=== PATIENT | female | born 1995 ===

== ENCOUNTER 2022-08-07 18:26 | Emergency (ER) | payer SELFPAY ==
[2022-08-07] MEDS ORDERED: MECLIZINE 25 MG (ANTIVERT) TAB ONE (19:04)
[2022-08-07] MEDS ORDERED: MECL-149 PO (20:00)
--- NOTE | 2022-08-07 20:00 | ED General ---
General Chief Complaint: Dizziness/Syncope Stated Complaint: DIZZINESS Source of Information: Patient Exam Limitations: No Limitations History of Present Illness Date Seen by Provider: Aug 07, 2022 Time Seen by Provider: 19:57 Initial Comments Patient is a 27-year-old female who presents the ED for dizziness. Dizziness started 3 days ago. Patient states the dizziness was acute onset. Feels like the room is spinning. She states is worse when she gets up and walks or moves her head. Denies of any visual loss, headache, unilateral muscle weakness or sensory changes, head injury, fever, vomiting or diarrhea. She states she feels nauseous and has to hold onto something with her walking. Patient is concerned for possible as she states she felt very similar when she was . Last menstrual cycle was July 19. Denies of any recent travels or surgeries. Denies taking medication with her symptoms. Patient denies ear ringing, hearing loss. No history of stroke. History of gestational diabetes. Allergies and Home Medications Patient Home Medication List Home Medication List Reviewed: Yes Meclizine HCl (Meclizine HCl) 25 Mg Tablet, 25 MG PO Q6H PRN for DIZZINESS Prescribed by: MAGGY REVELES on 08/07/221999 Review of Systems Review of Systems Constitutional: No chills, No diaphoresis, No malaise, No weakness EENTM: No ear pain, No blurred vision, No double vision Respiratory: No cough, No dyspnea on exertion Cardiovascular: No chest pain, No edema Gastrointestinal: No abdominal pain, No diarrhea; nausea; No vomiting Genitourinary: No decreased output, No discharge Musculoskeletal: No back pain Skin: No change in color, No change in hair/nails All Other Systems Reviewed Negative Unless Noted: Yes Past Cujvzkr-Xekfhe-Pwcaui Hx Patient Social History Tobacco Use?: No Substance use?: No Alcohol Use?: No Physical Exam Vital Signs Vital Signs - First Documented 08/07/22 18:34 Temp 36.4 Pulse 91 Resp 18 B/P (MAP) 119/79 (92) Pulse Ox 98 O2 Delivery Room Air Capillary Refill : Height, Weight, BMI Height: '" Weight: lbs. oz. kg; BMI Method: General Appearance: No Apparent Distress, WD/WN Eyes: Bilateral Eye Normal Inspection, Bilateral Eye PERRL, Bilateral Eye EOMI HEENT: PERRL/EOMI, TMs Normal, Normal ENT Inspection, Pharynx Normal Neck: Full Range of Motion, Supple Respiratory: Chest Non Tender, Lungs Clear, Normal Breath Sounds, No Accessory Muscle Use Cardiovascular: Regular Rate, Rhythm, No Edema, No Gallop, No JVD Gastrointestinal: Normal Bowel Sounds, No Organomegaly, No Pulsatile Mass, Non Tender Back: Normal Inspection, No CVA Tenderness Extremity: Normal Capillary Refill, Normal Inspection, Normal Range of Motion, Non Tender, No Calf Tenderness Neurologic/Psychiatric: Alert, Oriented x3, No Motor/Sensory Deficits, Normal Mood/Affect, supervisor facepiece line II-XII Norm as Tested Skin: Normal Color, Warm/Dry Lymphatic: No Adenopathy Progress/Results/Core Measures Suspected Sepsis SIRS Temperature: Pulse: Respiratory Rate: Laboratory Tests 08/07/22 19:00: White Blood Count 9.7 Blood Pressure / Mean: Laboratory Tests 08/07/22 19:00: Creatinine 0.63, Platelet Count 409H, Total Bilirubin 0.4 Results/Orders Lab Results Laboratory Tests Test 08/07/22 19:00 Range/Units White Blood Count 9.7 4.3-11.0 10^3/uL Red Blood Count 5.60 H 3.80-5.11 10^6/uL Hemoglobin 9.8 L 11.5-16.0 g/dL Hematocrit 34 L 35-52 % Mean Corpuscular Volume 61 L 80-99 fL Mean Corpuscular Hemoglobin 18 L 25-34 pg Mean Corpuscular Hemoglobin Concent 29 L 32-36 g/dL Red Cell Distribution Width 20.2 H 10.0-14.5 % Platelet Count 409 H 130-400 10^3/uL Mean Platelet Volume 9.8 9.0-12.2 fL Immature Granulocyte % (Auto) 0 % Neutrophils (%) (Auto) 65 42-75 % Lymphocytes (%) (Auto) 26 12-44 % Monocytes (%) (Auto) 7 0-12 % Eosinophils (%) (Auto) 1 0-10 % Basophils (%) (Auto) 0 0-10 % Neutrophils # (Auto) 6.3 1.8-7.8 10^3/uL Lymphocytes # (Auto) 2.5 1.0-4.0 10^3/uL Monocytes # (Auto) 0.7 0.0-1.0 10^3/uL Eosinophils # (Auto) 0.1 0.0-0.3 10^3/uL Basophils # (Auto) 0.0 0.0-0.1 10^3/uL Immature Granulocyte # (Auto) 0.0 0.0-0.1 10^3/uL Urine Color YELLOW Urine Clarity CLOUDY Urine pH 6.5 5-9 Urine Specific Eldridge 1.015 L 1.016-1.022 Urine Protein NEGATIVE NEGATIVE Urine Glucose (UA) NEGATIVE NEGATIVE Urine Ketones NEGATIVE NEGATIVE Urine Nitrite NEGATIVE NEGATIVE Urine Bilirubin NEGATIVE NEGATIVE Urine Urobilinogen 0.2 < = 1.0 MG/DL Urine Leukocyte Esterase TRACE H NEGATIVE Urine RBC (Auto) NEGATIVE NEGATIVE Urine RBC NONE /HPF Urine WBC 2-5 /HPF Urine Squamous Epithelial Cells 2-5 /HPF Urine Crystals NONE /LPF Urine Bacteria FEW H /HPF Urine Casts NONE /LPF Urine Mucus NEGATIVE /LPF Urine Culture Indicated YES Urine Test NEGATIVE NEGATIVE Sodium Level 139 135-145 MMOL/L Potassium Level 3.3 L 3.6-5.0 MMOL/L Chloride Level 104 98-107 MMOL/L Carbon Dioxide Level 25 21-32 MMOL/L Anion Gap 10 5-14 MMOL/L Blood Urea Nitrogen 6 L 7-18 MG/DL Creatinine 0.63 0.60-1.30 MG/DL Estimat Glomerular Filtration Rate 123 BUN/Creatinine Ratio 10 Glucose Level 105 70-105 MG/DL Calcium Level 8.9 8.5-10.1 MG/DL Corrected Calcium 8.9 8.5-10.1 MG/DL Total Bilirubin 0.4 0.1-1.0 MG/DL Aspartate Amino Transf (AST/SGOT) 12 5-34 U/L Alanine Aminotransferase (ALT/SGPT) 11 0-55 U/L Alkaline Phosphatase 81 40-136 U/L Total Protein 9.0 H 6.4-8.2 GM/DL Albumin 4.0 3.2-4.5 GM/DL My Orders Orders - GISSELL GAN PA Meclizine Tablet (Antivert Tablet) (08/07/22 19:04) Hcg,Qualitative Urine (08/07/22 19:00) Urinalysis (08/07/22 19:00) Cbc With Automated Diff (08/07/22 19:00) Comprehensive Metabolic Panel (08/07/22 19:00) Urine Culture (08/07/22 19:00) Medications Given in ED Current Medications Medications Dose Ordered Sig/Gerardo Route Start Time Stop Time Status Last Admin Dose Admin Meclizine HCl 25 mg STK-MED ONCE .ROUTE 08/07/22 19:04 08/07/22 19:51 DC 08/07/22 19:07 25 MG Vital Signs/I&O 08/07/22 08/07/22 18:34 20:13 Temp 36.4 Pulse 91 89 Resp 18 18 B/P (MAP) 119/79 (92) 124/83 Pulse Ox 98 98 O2 Delivery Room Air Room Air Capillary Refill : Departure Communication (PCP) Patient with abrupt onset of dizziness. Started 3 to 4 days ago. Described as room spinning. On a exam no evidence of nystagmus. Pupils react to light. No focal neural deficits. Neuro exam unremarkable. No hearing loss, ear ringing. No recent URI. No neurological red flag findings suggesting CT scan of the head. She is concern for . Similar symptoms in the past when she was . Urinalysis was negative for infection or . Hemoglobin of 9.8 with normal white blood count. Potassium 3.3. She was given meclizine with improvement of her dizziness. This appears to be more peripheral vertigo over versus central up. However during Wilburn-Hallpike was not able to appreciate ny stagmus. Attempted Rosalia's maneuver with some improvement. No evidence of bruits. No temporal tenderness. Patient vital signs stable. Will discharge with meclizine with outpatient follow-up with primary care physician. Provided ENT follow-up for vertigo clinic. If any worsening symptoms return back to ED for further evaluation. Impression Primary Impression: Dizziness Disposition: 01 HOME, SELF-CARE Condition: Stable Departure-Patient Inst. Decision time for Depature: 19:59 Referrals: JOLEEN RUTLEDGE MD [facility] Patient Instructions: Dizziness, Adult ED, Vertigo (a Type of Dizziness) Scripts Meclizine HCl (Meclizine HCl) 25 Mg Tablet 25 MG PO Q6H PRN for DIZZINESS, #12 TAB Prov: GISSELL GAN 08/07/22 GISSELL GAN Aug 07, 2022 20:00
[2022-08-07 20:09] LABS: BILIRUBIN,URINE NEGATIVE (NEGATIVE); CLARITY,URINE CLOUDY; GLUCOSE, URINE (UA) NEGATIVE (NEGATIVE); KETONES,URINE NEGATIVE (NEGATIVE); NITRITE,URINE NEGATIVE (NEGATIVE); PH,URINE 6.5 (5-9); PROTEIN,URINE NEGATIVE (NEGATIVE)
[2022-08-07 20:10] LABS: BACTERIA,URINE FEW /HPF; COLOR,URINE YELLOW; HCG,QUALITATIVE URINE NEGATIVE (NEGATIVE); LEUKOCYTE ESTERASE ,URINE TRACE (NEGATIVE)
[2022-08-07 20:13] VITALS: BP 124/83
[2022-08-07 20:15] LABS: BASOPHILS % (AUTO) 0 % (0-10); EOSINOPHILS # (AUTO) 0.1 10^3/uL (0.0-0.3); EOSINOPHILS % (AUTO) 1 % (0-10); HEMATOCRIT 34 % (35-52); HEMOGLOBIN 9.8 g/dL (11.5-16.0); LYMPHOCYTES # (AUTO) 2.5 10^3/uL (1.0-4.0); LYMPHOCYTES % (AUTO) 26 % (12-44); MEAN CORPUSCULAR HEMOGLOBIN 18 pg (25-34); MEAN CORPUSCULAR HGB CONC 29 g/dL (32-36); MEAN CORPUSCULAR VOLUME 61 fL (80-99); MEAN PLATELET VOLUME 9.8 fL (9.0-12.2); MONOCYTES # (AUTO) 0.7 10^3/uL (0.0-1.0); MONOCYTES % (AUTO) 7 % (0-12); NEUTROPHILS # (AUTO) 6.3 10^3/uL (1.8-7.8); NEUTROPHILS % (AUTO) 65 % (42-75); PLATELET COUNT 409 10^3/uL (130-400); WHITE BLOOD COUNT 9.7 10^3/uL (4.3-11.0)
[2022-08-07 20:16] LABS: CALCIUM 8.9 MG/DL (8.5-10.1); CREATININE SERUM 0.63 MG/DL (0.60-1.30); POTASSIUM 3.3 MMOL/L (3.6-5.0)
[2022-08-07 20:17] LABS: BILIRUBIN,TOTAL 0.4 MG/DL (0.1-1.0)
[2022-08-10] MEDS ORDERED: CEPH500T PO (15:02)
== END 2022-08-07 20:14 | disposition home or self-care (01) ==
LOC: ER 18:28
DX: R42 Dizziness and giddiness (principal)
CPT/HCPCS: 36415; 80053; 81000; 84703; 85025; 87077; 87088; 87186; 99283